=== PATIENT | female | born 1985 | race American Indian/Alaskan Native ===

== ENCOUNTER 2019-01-30 00:14 | Emergency (ER) | payer OTHER ==
[2019-01-30] MEDS ORDERED: KEPPRA 1,000 MG/NS 0.75% 100ML 1,000 MG/100 ML BAG IV ONE (00:21)
[2019-01-30] MEDS ORDERED: NACL 0.9% 1000 ML 1,000 ML IV ONE (00:22)
[2019-01-30] MEDS ORDERED: ZOFRAN IV ONE (00:22)
[2019-01-30] MEDS ORDERED: MORPHINE IV ONE (00:22)
--- NOTE | 2019-01-30 00:25 | Emergency Department Report ---
ED Seizure HPI - General Chief Complaint: Seizure Stated Complaint: SEIZURE Time Seen by Provider: 01/30/19 00:21 Source: patient, EMS Mode of arrival: Stretcher Limitations: No Limitations - History of Present Illness Initial Comments: Patient is 33 years old female with remote history of seizure. Patient brought to the emergency room via EMS from one of the [facility] after patient had one episode of generalized tonic colonic seizure with post ictal confusion. Patient stated that last time she had seizure was 7 years ago. Patient stated that she was complaining of some headache for the last 2 weeks and related that to her increase in the blood pressure. Patient denied any fever or chills. No neck pain. No injury. MD Complaint: seizure -: Sudden Description of Episode: loss of consciousness, tonic-clonic movement, post-event confusion Witnessed:: Yes Trauma: No Seizure History: known seizure disorder Possible Precipitating Event: none Associated Symptoms: denies other symptoms - Related Data Allergies Allergy/AdvReac Type Severity Reaction Status Date / Time lamotrigine [From Lamictal] Allergy Unknown Verified 01/30/19 00:30 topiramate [From Topamax] Allergy Unknown Verified 01/30/19 00:30 tramadol Allergy Unknown Verified 01/30/19 00:30 ED Review of Systems ROS: Stated complaint: SEIZURE Other details as noted in HPI Comment: All other systems reviewed and negative Constitutional: denies: chills, fever Respiratory: denies: cough, shortness of breath, SOB with exertion, SOB at rest, wheezing Cardiovascular: denies: chest pain Gastrointestinal: denies: abdominal pain, nausea, vomiting, diarrhea, cons tipation, hematemesis, hematochezia Musculoskeletal: denies: back pain Neurological: headache. denies: weakness, numbness, paresthesias, confusion, a bnormal gait ED Past Medical Hx - Past Medical History Hx Hypertension: Yes (resolved) Hx Headaches / Migraines: Yes Hx Seizures: Yes - Surgical History Past Surgical History?: No - Social History Smoking Status: Never Smoker Substance Use Type: None ED Physical Exam - General Limitations: No Limitations General appearance: alert, in no apparent distress - Head Head exam: Present: atraumatic, normocephalic, normal inspection - Eye Eye exam: Present: normal appearance - ENT ENT exam: Present: normal exam, normal orophraynx, mucous membranes moist - Neck Neck exam: Present: normal inspection, full ROM. Absent: tenderness, menin gismus, lymphadenopathy, thyromegaly - Respiratory Respiratory exam: Present: normal lung sounds bilaterally - Cardiovascular Cardiovascular Exam: Present: regular rate, normal rhythm, normal heart sounds - GI/Abdominal GI/Abdominal exam: Present: soft, normal bowel sounds. Absent: distended, tenderness, guarding, rebound, rigid, organomegaly, mass, bruit, pulsatile mass, hernia - Extremities Exam Extremities exam: Present: normal inspection, full ROM, normal capillary refill. Absent: pedal edema, calf tenderness - Back Exam Back exam: Present: normal inspection, full ROM. Absent: CVA tenderness (R), CVA tenderness (L), muscle spasm, paraspinal tenderness, vertebral tenderness - Neurological Exam Neurological exam: Present: alert, oriented X3, CN II-XII intact, normal gait, reflexes normal - Psychiatric Psychiatric exam: Present: normal mood - Skin Skin exam: Present: warm, intact, normal color ED Course Vital Signs 01/30/19 01/30/19 01/30/19 00:16 00:40 01:00 Temperature 98.4 F 98.2 F Pulse Rate 95 H 88 Respiratory 18 16 Rate Blood Pressure 134/91 136/80 Blood Pressure 126/72 [Left] O2 Sat by Pulse 100 100 99 Oximetry 01/30/19 01/30/19 01/30/19 01:10 02:00 02:40 Temperature Pulse Rate Respiratory 16 19 Rate Blood Pressure 125/74 Blood Pressure [Left] O2 Sat by Pulse 100 Oximetry ED Medical Decision Making - Lab Data Result diagrams: 01/30/19 00:31 01/30/19 00:31 - Radiology Data Radiology results: report reviewed - Medical Decision Making Patient is 33 years old female with remote history of seizure. Patient brought to the emergency room via EMS from one of the [facility] after patient had one episode of generalized tonic colonic seizure with post ictal confusion. Patient stated that last time she had seizure was 7 years ago. Patient stated that she was complaining of some headache for the last 2 weeks and related that to her increase in the blood pressure. Patient denied any fever or chills. No neck pain. No injury. Patient received 1 g of Keppra IV. Labs reviewed and is unremarkable. CT brain is negative for acute finding. No seizure activity observed in the ER. Patient given a prescription for Keppra and advised to follow-up with her neurologist in the next 2-3 days. Patient also advised to return to the ER if symptoms are not improved. Critical care attestation.: If time is entered above; I have spent that time in minutes in the direct care of this critically ill patient, excluding procedure time. ED Disposition Clinical Impression: Seizure, Headache Disposition: DC-01 TO HOME OR SELFCARE Is pt being admited?: No Condition: Stable Instructions: Recurrent Seizures Adult (ED), Acute Headache (ED) Referrals: PRIMARY CARE, [Primary Care Provider] - 3-5 Days
[2019-01-30 00:50] LABS: Basophils % (Auto) 0.4 % (0.0-1.8); Eosinophils % (Auto) 0.5 % (0.0-4.3); Hematocrit 39.8 % (30.3-42.9); Hemoglobin 12.9 gm/dl (10.1-14.3); Lymphocytes # (Auto) 1.3 K/mm3 (1.2-5.4); Mean Corpuscular HGB Conc 33 % (30-34); Mean Corpuscular Volume 87 fl (79-97); Monocytes # (Auto) 0.6 K/mm3 (0.0-0.8); Monocytes % (Auto) 9.2 % (0.0-7.3); Platelet Count 166 K/mm3 (140-440); Red Blood Count 4.57 M/mm3 (3.65-5.03); Red Cell Distribution Width 15.8 % (13.2-15.2)
--- NOTE | 2019-01-30 01:10 | Cat Scan Report ---
CT head without contrast INDICATION : Seizure with headache TECHNIQUE: Axial imaging performed from the skull apex through the skull base without the use of con trast. All CT examinations performed at this facility utilize dose modulation, iterative reconstruct ion or weight-based dosing, when appropriate, to reduce radiation dose to as low as reasonably achiev able. COMPARISON: None FINDINGS: No acute intracranial hemorrhage or parenchymal abnormality. Ventricles are normal in si ze and appear symmetric. Soft tissues including the orbits appear normal. No acute osseous abnorm ality. Sinuses and mastoid air cells are clear. IMPRESSION: No acute abnormality. Signer Name: David You MD Signed: 01/30/2019 1:05 AM Workstation Name: [id number]
[2019-01-30 01:16] LABS: Alanine Aminotransferase 8 units/L (7-56); Albumin 4.3 g/dL (3.9-5); BUN/Creatinine Ratio 20; Blood Urea Nitrogen 14 mg/dL (7-17); Calcium 8.7 mg/dL (8.4-10.2); Hemolysis Index 6
[2019-01-30 01:19] LABS: Bilirubin,Direct < 0.2 mg/dL (0-0.2)
[2019-01-30 02:25] LABS: Bacteria,Urine 1+ /HPF (Negative); Bilirubin,Urine NEG (Negative); Blood,Urine LG (Negative); Color,Urine Yellow (Yellow); Mucus,Urine 1+ /HPF; Protein,Urine <15 mg/dL mg/dL (Negative); Urobilinogen,Urine < 2.0 mg/dL (<2.0)
[2019-01-30] MEDS ORDERED: TORADOL IV ONE (02:36)
[2019-01-30] MEDS ORDERED: TORADOL ONE (02:39)
[2019-01-30 04:05] VITALS: BP 114/64
== END 2019-01-30 04:06 | disposition home or self-care (01) ==
LOC: ED 00:14
DX: R56.9 Unspecified convulsions (principal); I10 Essential (primary) hypertension; G43.909 Migraine, unspecified, not intractable, without status migrainosus; Z79.899 Other long term (current) drug therapy; Z88.8 Allergy status to other drugs, medicaments and biological substances
CPT/HCPCS: 36415; 70450; 80048; 80076; 81001; 84703; 85025; 96365; 96375; 99284; J1885; J1953; J2270; J2405; J7030